=== PATIENT | female | born 1970 | race Caucasian/White ===

== ENCOUNTER → 2023-09-19 13:39 | Outpatient (REF) | payer BC, SELFPAY | LOC: RAD 13:39 | PROVIDERS: ATTENDING PHYSICIAN Specialist; FAMILY PHYSICIAN Physician Assistant Medical | DX: M25.551 Pain in right hip (principal) | CPT/HCPCS: 73502 ==

== ENCOUNTER → 2023-10-31 07:18 | Outpatient (REF) | payer BC, SELFPAY | LOC: PAVMRI 07:18 | PROVIDERS: ATTENDING PHYSICIAN Physician Assistant Medical; FAMILY PHYSICIAN Family Medicine | DX: M54.12 Radiculopathy, cervical region (principal); M48.02 Spinal stenosis, cervical region; G83.4 Cauda equina syndrome | CPT/HCPCS: 72141; 72148 ==

== ENCOUNTER → 2023-10-31 13:49 | Outpatient (REF) | payer BC, SELFPAY | LOC: OLAB 13:49 | PROVIDERS: ATTENDING PHYSICIAN Internal Medicine Cardiovascular Disease | DX: Z22.322 Carrier or suspected carrier of Methicillin resistant Staphylococcus aureus (principal); B95.62 Methicillin resistant Staphylococcus aureus infection as the cause of diseases classified elsewhere; Z01.810 Encounter for preprocedural cardiovascular examination | CPT/HCPCS: 87070; 93005 ==

== ENCOUNTER → 2023-12-08 09:10 | Outpatient (REF) | payer BC, SELFPAY ==
[2023-12-08 09:32] LABS: % Basophils 0.7 % (0-2); % Eosinophils 4.1 % (0-6); % Immature Granulocytes 0.2 % (0-0.5); % Lymphocytes 26.2 % (20.5-51.1); % Monocytes 10.5 % (1.7-9.3); % Neutrophils 58.3 % (42.2-75.2); Absolute Eosinophils 0.2 10^3/uL (0-0.7); Absolute Lymphocytes 1.2 10^3/uL (1.2-3.4); Absolute Monocytes 0.5 10^3/uL (0.1-0.6); Absolute Neutrophils 2.6 10^3/uL (1.4-6.5); Hematocrit 36.4 % (37.0-47.0); Hemoglobin 12.5 g/dL (12.0-16.0); Mean Corp Hgb Conc. 34.3 g/dL (33.0-37.0); Mean Corpuscular Volume 87.5 fL (81.0-99.0); Mean Platelet Volume 10.4 fL (7.4-10.4); Nucleated Red Blood Cells % 0 %; Platelet Count 231 10^3/uL (130-400); Red Blood Cell Count 4.16 10^6/uL (4.20-5.40); Red Cell Dist. Width 13.5 % (11.5-14.5); White Blood Cell Count 4.4 10^3/uL (4.8-10.8)
[2023-12-08 10:00] LABS: ALT (SGPT) 16 U/L (0-35); AST (SGOT) 35 U/L (14-36); Albumin 4.6 g/dl (3.5-5.0); Alkaline Phosphatase 73 U/L (38-126); Blood Urea Nitrogen 21 mg/dl (7-17); Calcium 9.6 mg/dl (8.4-10.2); Carbon Dioxide 26 mmol/L (22-30); Chloride 98 mmol/L (98-107); Glucose 94 mg/dl (70-99); HDL Cholesterol 87 mg/dl; LDL Cholesterol, Calculated 91 mg/dl; Potassium 4.2 mmol/L (3.5-5.1); Sodium 133 mmol/L (135-145); Total Bilirubin 1.1 mg/dl (0.2-1.3); Total Cholesterol 189 mg/dl (50-199); Total Protein 7.3 g/dl (6.3-8.2); Triglyceride 55 mg/dl (10-149); Very Low Density Lipoprotein 11 mg/dl (0-30); eGFR > 60.00
[2023-12-08 10:36] LABS: Erythrocyte Sed Rate 11 mm/hour (0-20)
[2023-12-08 17:30] LABS: TSH Reflex To Free T4 3.08 uIU/ml (0.47-4.68)
[2023-12-09 21:08] LABS: ANA, IgG Reflex to HEp-2 None Detected (None Detected)
[2023-12-10 12:44] LABS: Aldosterone, Serum 19.1 ng/dL; Renin Activity Results 0.1 ng/mL/hr
== END ==
LOC: REG 09:10
PROVIDERS: ATTENDING PHYSICIAN Internal Medicine Cardiovascular Disease
DX: I15.0 Renovascular hypertension (principal)
CPT/HCPCS: 36415; 80053; 80061; 82088; 83835; 84244; 84443; 85025; 85652; 86038

== ENCOUNTER → 2023-12-14 07:53 | Outpatient (REF) | payer BC, SELFPAY ==
[2023-12-16 09:23] LABS: Renin Activity Results 0.2 ng/mL/hr
== END ==
LOC: OLAB 07:53
PROVIDERS: ATTENDING PHYSICIAN Internal Medicine Cardiovascular Disease
DX: E26.9 Hyperaldosteronism, unspecified (principal)
CPT/HCPCS: 84244

== ENCOUNTER → 2024-01-05 08:09 | Outpatient (REF) | payer BC, SELFPAY | LOC: RAD 08:09 | PROVIDERS: ATTENDING PHYSICIAN Internal Medicine Cardiovascular Disease; FAMILY PHYSICIAN Family Medicine | DX: I15.0 Renovascular hypertension (principal) | CPT/HCPCS: 93930; 93975 ==

== ENCOUNTER → 2024-11-01 13:21 | Outpatient (REF) | payer BC, SELFPAY ==
[2024-11-01 14:22] LABS: ALT (SGPT) 22 U/L (0-35); AST (SGOT) 33 U/L (14-36); Albumin 5.4 g/dl (3.5-5.0); Alkaline Phosphatase 70 U/L (38-126); Blood Urea Nitrogen 16 mg/dl (7-17); Calcium 10.2 mg/dl (8.4-10.2); Carbon Dioxide 29 mmol/L (22-30); Chloride 99 mmol/L (98-107); Glucose 96 mg/dl (70-99); Magnesium 2.5 mg/dl (1.6-2.3); Potassium 4.7 mmol/L (3.5-5.1); Sodium 138 mmol/L (135-145); Total Protein 8.1 g/dl (6.3-8.2); eGFR > 60.00
[2024-11-01 14:58] LABS: Creatine Phosphokinase 135 U/L (30-135)
== END ==
LOC: SDSPAT 13:21
PROVIDERS: ATTENDING PHYSICIAN Internal Medicine Cardiovascular Disease
DX: I10 Essential (primary) hypertension (principal); E26.9 Hyperaldosteronism, unspecified; M79.10 Myalgia, unspecified site
CPT/HCPCS: 80053; 82550; 83735

== ENCOUNTER → 2024-11-18 20:15 | Outpatient (REF) | payer BC, SELFPAY | LOC: MRI 3T 20:15 | PROVIDERS: ATTENDING PHYSICIAN Obstetrics & Gynecology; FAMILY PHYSICIAN Family Medicine | DX: T85.44XA Capsular contracture of breast implant, initial encounter (principal); Z98.82 Breast implant status | CPT/HCPCS: 77049; A9585 ==

== ENCOUNTER → 2025-01-20 13:15 | Outpatient (REF) | payer BC, SELFPAY ==
[2025-01-20 13:56] LABS: % Basophils 0.9 % (0-2); % Eosinophils 2.4 % (0-6); % Immature Granulocytes 0.2 % (0-0.5); % Lymphocytes 31.1 % (20.5-51.1); % Monocytes 10.8 % (1.7-9.3); % Neutrophils 54.6 % (42.2-75.2); Absolute Eosinophils 0.1 10^3/uL (0-0.7); Absolute Lymphocytes 1.3 10^3/uL (1.2-3.4); Absolute Monocytes 0.5 10^3/uL (0.1-0.6); Absolute Neutrophils 2.3 10^3/uL (1.4-6.5); Hematocrit 38.7 % (37.0-47.0); Mean Corp Hgb Conc. 33.6 g/dL (33.0-37.0); Mean Corpuscular Hgb 30.3 pg (27.0-31.0); Mean Corpuscular Volume 90.2 fL (81.0-99.0); Mean Platelet Volume 9.9 fL (7.4-10.4); Nucleated Red Blood Cells % 0 %; Platelet Count 246 10^3/uL (130-400); Red Blood Cell Count 4.29 10^6/uL (4.20-5.40); White Blood Cell Count 4.2 10^3/uL (4.8-10.8)
[2025-01-20 13:59] LABS: Urine Albumin Negative (Neg - Trace); Urine Bilirubin Negative (Negative); Urine Character Clear (Clear); Urine Color Yellow; Urine Glucose Negative (Negative); Urine Ketone Negative (Negative); Urine Leukocyte Negative (Negative); Urine Nitrite Negative (Negative); Urine Occult Blood Negative (Negative); Urine Urobilinogen Negative (Neg - 1+)
[2025-01-20 14:12] LABS: ALT (SGPT) 26 U/L (0-35); AST (SGOT) 37 U/L (14-36); Alkaline Phosphatase 52 U/L (38-126); Blood Urea Nitrogen 11 mg/dl (7-17); Calcium 9.4 mg/dl (8.4-10.2); Carbon Dioxide 27 mmol/L (22-30); Chloride 103 mmol/L (98-107); Glucose 97 mg/dl (70-99); Sodium 139 mmol/L (135-145); Total Bilirubin 1.3 mg/dl (0.2-1.3); Total Protein 7.7 g/dl (6.3-8.2); eGFR > 60.00
== END ==
LOC: RCS 13:15
PROVIDERS: ATTENDING PHYSICIAN Physician Assistant Medical
DX: N39.0 Urinary tract infection, site not specified (principal); D64.9 Anemia, unspecified; N28.9 Disorder of kidney and ureter, unspecified
CPT/HCPCS: 36415; 80053; 81003; 85025; 87086

== ENCOUNTER → 2025-07-29 16:12 | Outpatient (REF) | payer BC, SELFPAY | LOC: MRI 3T 16:12 | PROVIDERS: ATTENDING PHYSICIAN Physician Assistant Medical; FAMILY PHYSICIAN Family Medicine | DX: N64.4 Mastodynia (principal); T85.44XA Capsular contracture of breast implant, initial encounter; T85.43XA Leakage of breast prosthesis and implant, initial encounter | CPT/HCPCS: 77049; A9585 ==